=== PATIENT | female | born 1945 | race Native Hawaiian/Other Pacific Islander ===

== ENCOUNTER 2016-07-22 13:51 | Outpatient (CLI) | payer OTHER ==
[2016-07-22 15:07] LABS: PLATELET COUNT 193 K/uL (152-353)
[2016-07-22 15:33] LABS: POTASSIUM 4.8 mmol/L (3.6-5.2)
== END 2016-07-22 14:51 | disposition home or self-care (01) ==
LOC: LAB 13:51
PROVIDERS: Nurse Practitioner Family
DX: I10 Essential (primary) hypertension (principal); E11.9 Type 2 diabetes mellitus without complications; E78.4 Other hyperlipidemia
CPT/HCPCS: 80053; 80061; 83036; 84439; 84443; 85027

== ENCOUNTER 2016-08-21 14:13 | Outpatient (CLI) | payer OTHER | END 2016-08-21 16:00 | disposition home or self-care (01) | LOC: MAMMO 14:13 | DX: E78.5 Hyperlipidemia, unspecified (principal); Z12.31 Encounter for screening mammogram for malignant neoplasm of breast | CPT/HCPCS: G0202-TC ==

== ENCOUNTER 2016-11-12 09:29 | Outpatient (CLI) | payer OTHER ==
[2016-11-12 09:45] LABS: PLATELET COUNT 244 K/uL (152-353)
[2016-11-12 10:27] LABS: POTASSIUM 4.3 mmol/L (3.6-5.2)
== END 2016-11-12 10:30 | disposition home or self-care (01) ==
LOC: LABW 09:29
PROVIDERS: Nurse Practitioner Family
DX: I25.10 Atherosclerotic heart disease of native coronary artery without angina pectoris (principal); E78.4 Other hyperlipidemia; Z79.899 Other long term (current) drug therapy; E66.8 Other obesity; E55.9 Vitamin D deficiency, unspecified; E11.9 Type 2 diabetes mellitus without complications
CPT/HCPCS: 36415; 80053; 82306; 83036; 84439; 84443; 85027

== ENCOUNTER 2017-03-25 13:52 | Outpatient (CLI) | payer OTHER ==
[2017-03-25 14:27] LABS: PLATELET COUNT 262 K/uL (152-353)
[2017-03-25 14:52] LABS: POTASSIUM 4.9 mmol/L (3.6-5.2)
== END 2017-03-25 21:18 | disposition home or self-care (01) ==
LOC: LAB 13:52
PROVIDERS: Nurse Practitioner Family
DX: E78.4 Other hyperlipidemia (principal); I10 Essential (primary) hypertension; E11.9 Type 2 diabetes mellitus without complications; D64.89 Other specified anemias; Z79.899 Other long term (current) drug therapy; Z51.81 Encounter for therapeutic drug level monitoring
CPT/HCPCS: 80053; 80061; 83036; 84436; 84443; 85027

== ENCOUNTER 2017-09-22 11:39 | Outpatient (CLI) | payer OTHER | END 2017-09-22 22:24 | disposition home or self-care (01) | LOC: RAD 11:39 → MAMMO 11:39 | DX: Z12.31 Encounter for screening mammogram for malignant neoplasm of breast (principal) ==

== ENCOUNTER 2017-09-23 13:40 | Outpatient (CLI) | payer OTHER ==
[2017-09-23 14:34] LABS: PLATELET COUNT 282 K/uL (152-353)
[2017-09-23 14:56] LABS: POTASSIUM 4.4 mmol/L (3.6-5.2)
== END 2017-09-23 21:46 | disposition home or self-care (01) ==
LOC: LAB 13:40
PROVIDERS: Nurse Practitioner Family
DX: E78.4 Other hyperlipidemia (principal); I10 Essential (primary) hypertension; E11.9 Type 2 diabetes mellitus without complications; D64.89 Other specified anemias; Z79.899 Other long term (current) drug therapy; Z51.81 Encounter for therapeutic drug level monitoring
CPT/HCPCS: 80053; 80061; 83036; 84436; 84443; 85027

== ENCOUNTER 2019-01-18 23:07 | Emergency (ER) | payer OTHER ==
[~2019-01-18] VITALS: Ht 157.5 cm; Wt 64.0 kg
[2019-01-18 23:10] VITALS: TEMP 97.7
[2019-01-18 23:42] LABS: PLATELET COUNT 201 K/uL (152-353)
[2019-01-18 23:59] LABS: POTASSIUM 3.7 mmol/L (3.6-5.2); SODIUM 138 mmol/L (136-145)
[2019-01-19 00:35] VITALS: BP 167/77
== END 2019-01-19 00:42 | disposition home or self-care (01) ==
LOC: ED 23:07
PROVIDERS: Emergency Medicine
DX: I10 Essential (primary) hypertension (principal)
CPT/HCPCS: 80053; 82550; 83735; 84484; 85027; 99283

== ENCOUNTER 2019-03-01 22:57 | Emergency (ER) | payer OTHER ==
[~2019-03-01] VITALS: Ht 157.5 cm; Wt 64.0 kg
[2019-03-01 23:58] VITALS: BP 175/81; TEMP 97.7
== END 2019-03-01 23:58 | disposition home or self-care (01) ==
LOC: ED 22:57
DX: R05 Cough (principal)
CPT/HCPCS: 99282

== ENCOUNTER 2019-04-05 19:08 | Emergency (ER) | payer OTHER ==
[~2019-04-05] VITALS: Ht 157.5 cm; Wt 65.3 kg
[2019-04-05 21:54] LABS: PLATELET COUNT 212 K/uL (152-353)
[2019-04-05 22:02] LABS: POTASSIUM 4.3 mmol/L (3.6-5.2); SODIUM 135 mmol/L (136-145)
[2019-04-05 23:00] VITALS: BP 160/75; TEMP 98.3
== END 2019-04-05 23:00 | disposition home or self-care (01) ==
LOC: ED 19:08
PROVIDERS: Student in an Organized Health Care Education/Training Program
DX: E11.65 Type 2 diabetes mellitus with hyperglycemia (principal); I10 Essential (primary) hypertension
CPT/HCPCS: 36415; 80048; 81000; 82962; 83735; 84484; 85027; 93005; 96360; 99284

== ENCOUNTER 2019-12-11 12:47 | Emergency (ER) | payer OTHER ==
[~2019-12-11] VITALS: Ht 154.9 cm; Wt 65.8 kg
[2019-12-11 12:56] VITALS: TEMP 98.3
[2019-12-11 14:46] LABS: PLATELET COUNT 240 K/uL (152-353)
[2019-12-11 14:58] LABS: POTASSIUM 3.9 mmol/L (3.6-5.2); SODIUM 137 mmol/L (136-145)
[2019-12-11 15:07] LABS: PARTIAL THROMBOPLASTIN TIME 25.6 SECONDS (24.5-33.6)
[2019-12-11 15:36] VITALS: BP 165/72
== END 2019-12-11 15:37 | disposition home or self-care (01) ==
LOC: ED 12:47
PROVIDERS: Hospitalist
DX: R00.2 Palpitations (principal)
CPT/HCPCS: 36415; 80053; 82550; 83880; 84484; 85027; 85610; 85730; 93005; 99283

== ENCOUNTER 2019-12-20 09:29 | Emergency (ER) | payer OTHER ==
[~2019-12-20] VITALS: Ht 162.6 cm; Wt 65.8 kg
[2019-12-20 09:40] VITALS: TEMP 98.3
[2019-12-20] MEDS ORDERED: TRICOR48 MG PO (11:12)
[2019-12-20] MEDS ORDERED: ACTONEL150 MG PO (11:12)
[2019-12-20] MEDS ORDERED: LANTUS SOLOSTAR SC (11:13)
[2019-12-20] MEDS ORDERED: HYDR25TA60 PO (11:14)
[2019-12-20] MEDS ORDERED: CALC ACETATE668 MG PO (11:17)
[2019-12-20] MEDS ORDERED: AMLO2.5T PO (11:18)
[2019-12-20] MEDS ORDERED: METOPROLOL25 M1 PO (11:19)
[2019-12-20] MEDS ORDERED: MONT10TA PO (11:21)
[2019-12-20] MEDS ORDERED: COZAAR100 MG PO (11:26)
[2019-12-20] MEDS ORDERED: SITA50TA2 PO (11:26)
[2019-12-20] MEDS ORDERED: GLIM4TAB PO (11:26)
[2019-12-20 11:33] LABS: PLATELET COUNT 217 K/uL (152-353)
[2019-12-20 11:37] LABS: POTASSIUM 3.6 mmol/L (3.6-5.2); SODIUM 134 mmol/L (136-145)
[2019-12-20 14:30] VITALS: BP 180/76
== END 2019-12-20 14:30 | disposition home or self-care (01) ==
LOC: ED 09:29
PROVIDERS: Family Medicine
DX: I10 Essential (primary) hypertension (principal)
CPT/HCPCS: 80053; 81000; 84484; 85027; 93005; 99284

== ENCOUNTER 2020-05-02 13:31 | Outpatient (CLI) | payer OTHER ==
[~2020-05-02 13:31] MED LIST: ACTONEL150 MG PO; AMLO2.5T PO; CALC ACETATE668 MG PO; COZAAR100 MG PO; GLIM4TAB PO; HYDR25TA60 PO; LANTUS SOLOSTAR SC; METOPROLOL25 M1 PO; MONT10TA PO; SITA50TA2 PO; TRICOR48 MG PO
== END 2020-05-02 19:42 | disposition home or self-care (01) ==
LOC: MAMMO 13:31
PROVIDERS: ATTEND Nurse Practitioner Family
DX: Z12.31 Encounter for screening mammogram for malignant neoplasm of breast (principal); E11.9 Type 2 diabetes mellitus without complications; E78.49 Other hyperlipidemia; N18.9 Chronic kidney disease, unspecified; M19.90 Unspecified osteoarthritis, unspecified site; I12.9 Hypertensive chronic kidney disease with stage 1 through stage 4 chronic kidney disease, or unspecified chronic kidney disease

== ENCOUNTER 2020-07-25 13:51 | Outpatient (CLI) | payer OTHER | END 2020-07-25 20:31 | disposition home or self-care (01) | LOC: INF 13:51 | PROVIDERS: ATTEND Internal Medicine | DX: Z23 Encounter for immunization (principal) | CPT/HCPCS: 96372 ==

== ENCOUNTER 2020-08-16 13:39 | Outpatient (CLI) | payer OTHER | END 2020-08-16 20:38 | disposition home or self-care (01) | LOC: INF 13:39 | PROVIDERS: ATTEND Internal Medicine | DX: Z23 Encounter for immunization (principal) | CPT/HCPCS: 96372 ==

== ENCOUNTER 2020-09-21 00:39 | Emergency (ER) | payer OTHER ==
[~2020-09-21] VITALS: Ht 162.6 cm; Wt 70.3 kg
[2020-09-21 01:38] LABS: PLATELET COUNT 239 K/uL (152-353)
[2020-09-21 01:44] LABS: POTASSIUM 4.2 mmol/L (3.6-5.2); SODIUM 137 mmol/L (136-145)
[2020-09-21 02:27] VITALS: BP 147/60; TEMP 98.3
== END 2020-09-21 02:23 | disposition home or self-care (01) ==
LOC: ED 00:39
PROVIDERS: Family Medicine
DX: R07.89 Other chest pain (principal); I10 Essential (primary) hypertension
CPT/HCPCS: 36415; 80053; 82550; 82553; 84484; 85027; 93005; 99283

== ENCOUNTER 2021-06-11 10:57 | Outpatient (CLI) | payer OTHER | END 2021-06-11 18:56 | disposition home or self-care (01) | LOC: MAMMO 10:57 | PROVIDERS: ATTEND Nurse Practitioner Family | DX: Z12.31 Encounter for screening mammogram for malignant neoplasm of breast (principal); E11.9 Type 2 diabetes mellitus without complications; E78.49 Other hyperlipidemia; N18.30 Chronic kidney disease, stage 3 unspecified; R89.8 Other abnormal findings in specimens from other organs, systems and tissues; I12.9 Hypertensive chronic kidney disease with stage 1 through stage 4 chronic kidney disease, or unspecified chronic kidney disease ==

== ENCOUNTER 2021-10-24 07:30 | Outpatient (CLI) | payer OTHER ==
[2021-10-24 08:06] LABS: PLATELET COUNT 237 K/uL (152-353)
[2021-10-24 08:27] LABS: POTASSIUM 3.6 mmol/L (3.6-5.2)
== END 2021-10-24 18:58 | disposition home or self-care (01) ==
LOC: LABW 07:30
PROVIDERS: ATTEND Nurse Practitioner Family
DX: D64.89 Other specified anemias (principal); E55.9 Vitamin D deficiency, unspecified; E78.49 Other hyperlipidemia; N18.30 Chronic kidney disease, stage 3 unspecified; E11.9 Type 2 diabetes mellitus without complications; I12.9 Hypertensive chronic kidney disease with stage 1 through stage 4 chronic kidney disease, or unspecified chronic kidney disease
CPT/HCPCS: 36415; 80053; 80061; 81002; 82043; 82306; 82570; 83036; 84439; 84443; 85027

== ENCOUNTER 2022-02-20 16:10 | Observation (INO) | payer OTHER ==
[~2022-02-20] VITALS: Ht 157.5 cm; Wt 55.5 kg
[2022-02-20] VITALS (10 sets, daily range): BP systolic 124–163; BP diastolic 50–81; TEMP 96.6
[~2022-02-20 16:10] MED LIST changes: -AMLO2.5T PO; +AMLODIPINE BESYLATE PO; -HYDR25TA60 PO; +HYDROCHLOROT12.5 M1 PO; +JANUVIA100 MG PO; +LANTUS SOL100 UNIT/M SC; -LANTUS SOLOSTAR SC; -SITA50TA2 PO
[2022-02-20 17:50] LABS: PLATELET COUNT 128 K/uL (152-353)
[2022-02-20 17:59] LABS: POTASSIUM 4.1 mmol/L (3.6-5.2)
[2022-02-20 20:43] LABS: PARTIAL THROMBOPLASTIN TIME 29.2 SECONDS (24.5-33.6)
[2022-02-21 03:50] VITALS: BP 166/66; TEMP 99.8; Ht 157.5 cm; Wt 55.5 kg
[2022-02-21 04:00] VITALS: BP 128/72; TEMP 98.2
[2022-02-21 05:35] LABS: PLATELET COUNT 131 K/uL (152-353)
[2022-02-21 05:48] LABS: POTASSIUM 4.2 mmol/L (3.6-5.2)
[2022-02-21 08:00] VITALS: BP 138/58; TEMP 99
[2022-02-21] MEDS ORDERED: LABETALOL100 MG PO (11:34)
[2022-02-21] MEDS ORDERED: SIMV20TA2 PO (11:36)
[2022-02-21 12:00] VITALS: BP 154/62; TEMP 97.9
[2022-02-21] MEDS ORDERED: OSEL75CA PO (15:47)
[2022-02-21] MEDS ORDERED: NATURAL ZINC50 MG PO (15:48)
== END 2022-02-21 15:00 | disposition home or self-care (01) ==
LOC: ED 16:10 → MED/SURG 22:00
PROVIDERS: ADMIT Emergency Medicine; ATTEND Internal Medicine
DX: J10.1 Influenza due to other identified influenza virus with other respiratory manifestations (principal); R53.1 Weakness; R42 Dizziness and giddiness; E78.49 Other hyperlipidemia; M81.8 Other osteoporosis without current pathological fracture; I95.1 Orthostatic hypotension; E11.22 Type 2 diabetes mellitus with diabetic chronic kidney disease; E11.65 Type 2 diabetes mellitus with hyperglycemia; I12.9 Hypertensive chronic kidney disease with stage 1 through stage 4 chronic kidney disease, or unspecified chronic kidney disease; N18.31 Chronic kidney disease, stage 3a
CPT/HCPCS: 36415; 80053; 81002; 84484; 85027; 85610; 85730; 87502; 87635; 93005; 96361; 99220; 99283; G0378; U0003

== ENCOUNTER 2022-07-24 12:36 | Outpatient (CLI) | payer OTHER ==
[~2022-07-24 12:36] MED LIST changes: +LABETALOL100 MG PO; +NATURAL ZINC50 MG PO; +OSEL75CA PO; +SIMV20TA2 PO
== END 2022-07-24 19:07 | disposition home or self-care (01) ==
LOC: MAMMO 12:36
PROVIDERS: ATTEND Nurse Practitioner Family
DX: Z12.31 Encounter for screening mammogram for malignant neoplasm of breast (principal)

== ENCOUNTER 2022-09-26 08:11 | Outpatient (CLI) | payer OTHER | END 2022-09-26 19:15 | disposition home or self-care (01) | LOC: RESP 08:11 | PROVIDERS: ATTEND Specialist | DX: I10 Essential (primary) hypertension (principal); R01.1 Cardiac murmur, unspecified ==

== ENCOUNTER 2022-12-03 09:58 | Outpatient (CLI) | payer OTHER | END 2022-12-03 18:57 | disposition home or self-care (01) | LOC: RAD 09:58 | PROVIDERS: ATTEND Nurse Practitioner Family | DX: Z13.820 Encounter for screening for osteoporosis (principal); N95.8 Other specified menopausal and perimenopausal disorders ==